=== PATIENT | female | born 1965 | race Caucasian/White ===

== ENCOUNTER 2018-04-11 21:12 | Emergency (ER) | payer MEDICAID, OTHER ==
[2018-04-11] MEDS ORDERED: Take Home: Acetaminophen/Codeine 300 MG/30 MG, 5 Tab Pack PO ONE (21:40)
[2018-04-11] MEDS ORDERED: Take Home: Cyclobenzaprine 10 MG Tab, 4 Tab Pack PO ONE (21:40)
--- NOTE | 2018-04-11 21:45 | EDM.PDOC ---
ED HPI GENERAL MEDICAL PROBLEM - General Chief Complaint: General Stated Complaint: Right sided neck pain Time Seen by Provider: 04/11/18 21:20 Source of Information: Reports: Patient History Limitations: Reports: No Limitations - History of Present Illness INITIAL COMMENTS - FREE TEXT/NARRATIVE: Complains of severe, non-traumatic neck pain with radiation into R upper shoulder and into lateral upper arm (deltoid) area. Complains of paresthesia to R posterior upper shoulder area. No trauma. No fever or chills. States that she has had issues with discomfort similar to this in the past, but this is much worse. She has taken tylenol and ibuprofen for discomfort but it has not helped. Location: Reports: Neck, Upper Extremity, Right Quality: Reports: Ache, Stabbing, Throbbing Severity: Severe Right side of neck Pain Score (Numeric/FACES): 9 - Related Data Allergies Allergy/AdvReac Type Severity Reaction Status Date / Time povidone-iodine Allergy Other Verified 04/12/18 03:48 [From Betadine] soap [From Betadine] Allergy Other Verified 04/12/18 03:48 Home Meds: Home Meds Acetaminophen with Codeine [Tylenol with Codeine #3 Tablet] 1 tab PO Q4H PRN [History] Cyclobenzaprine [Flexeril] 10 mg PO TID 04/12/18 [History] ED ROS GENERAL - Review of Systems Review Of Systems: See Below Constitutional: Reports: No Symptoms Musculoskeletal: Reports: Neck Pain, Shoulder Pain, Arm Pain Skin: Reports: No Symptoms Neurological: Reports: Paresthesia ED EXAM, GENERAL - Physical Exam Exam: See Below Exam Limited By: No Limitations General Appearance: Alert, WD/WN, No Apparent Distress Neck: Limited Range of Motion, Tender Lateral Peripheral Pulses: 4+: Radial (L), Radial (R) Extremities: Normal Inspection, Limited Range of Motion Course - Vital Signs Last Recorded V/S: Last Vital Signs Temp 36.1 C 04/11/18 21:15 Pulse 76 04/11/18 21:15 Resp 20 04/11/18 21:15 BP 178/100 H 04/11/18 21:15 Pulse Ox 99 04/11/18 21:15 - Orders/Labs/Meds Meds: Medications Discontinued Medications Generic Name Dose Route Start Last Admin Trade Name Freq PRN Reason Stop Dose Admin Acetaminophen/Codeine Phosphate 1 packet 04/11/18 21:40 04/11/18 21:48 Take Home: Acetam/Codeine 300-30 Mg, 5 Pack PO 04/11/18 21:41 1 packet ONETIME ONE Administration Cyclobenzaprine HCl 1 packet 04/11/18 21:40 04/11/18 21:48 Take Home: Cyclobenzaprine 10 Mg, 4 Tab Pack PO 04/11/18 21:41 1 packet ONETIME ONE Administration Departure - Departure Time of Disposition: 21:58 Disposition: Home, Self-Care 01 Condition: Good Clinical Impression: Cervical radiculopathy - Discharge Information Instructions: Cervical Radiculopathy Referrals: PCP,Not In Area [Primary Care Provider] - Forms: ED Department Discharge Additional Instructions: Tylenol 3 1 every 4-6 hours as needed for pain Flexeril 10mg three times daily Ibuprofen 600mg every 6 hours for pain Do the exercises as described Follow-up with PCP if not gradually improving, as you may need an MRI - Assessment/Plan Plan: Tylenol 3 1 every 4-6 hours as needed for pain Flexeril 10mg three times daily Ibuprofen 600mg every 6 hours for pain Do the exercises as described Follow-up with PCP if not gradually improving, as you may need an MRI
== END 2018-04-11 21:58 | disposition home or self-care (01) ==
LOC: VM.ED 21:12
DX: M54.12 Radiculopathy, cervical region (principal); Z88.8 Allergy status to other drugs, medicaments and biological substances
CPT/HCPCS: 99283; A9270

== ENCOUNTER 2018-04-12 03:35 | Emergency (ER) | payer MEDICAID ==
[2018-04-12] MEDS ORDERED: HYDROmorphone 1 MG/ML Syringe IM ONE (03:45)
[2018-04-12] MEDS ORDERED: HYDROmorphone 1 MG/ML Syringe IVPUSH ONE ×2 (03:48→03:53)
[2018-04-12] MEDS ORDERED: Sodium Chloride 0.9% 10 ML Syringe FLUSH PRN (03:48)
--- NOTE | 2018-04-12 04:27 | EDM.PDOC ---
ED HPI GENERAL MEDICAL PROBLEM - General Chief Complaint: Neck Problem Stated Complaint: Neck pain with spasms Time Seen by Provider: 04/12/18 03:35 Source of Information: Reports: Patient History Limitations: Reports: No Limitations - History of Present Illness INITIAL COMMENTS - FREE TEXT/NARRATIVE: Pt. contacted ER with complaints of neck and shoulder pain not helped with the tylenol 3. Pt. was informed to return to ER. Pt. states that the symptoms are the same but severe-pain radiating into R shoulder and neck. Continues to have some paresthesia to posterior lateral neck region. No new discomfort. No other acute neuro symtoms. Onset Date: 04/10/18 Location: Reports: Neck, Lower Extremity, Right Quality: Reports: Ache, Burning, Throbbing Severity: Severe Treatments SENIOR ECONOMIST: Reports: Cold Therapy, Other (see below) Other Treatments SENIOR ECONOMIST: Flexeril, Tyl #3 Right side of neck Pain Score (Numeric/FACES): 10 - Related Data Allergies Allergy/AdvReac Type Severity Reaction Status Date / Time povidone-iodine Allergy Other Verified 04/12/18 03:48 [From Betadine] soap [From Betadine] Allergy Other Verified 04/12/18 03:48 Home Meds: Home Meds Acetaminophen with Codeine [Tylenol with Codeine #3 Tablet] 1 tab PO Q4H PRN [History] Cyclobenzaprine [Flexeril] 10 mg PO TID 04/12/18 [History] Past Medical History - Past Health History Medical/Surgical History: Denies Medical/Surgical History ED ROS GENERAL - Review of Systems Review Of Systems: See Below Constitutional: Reports: No Symptoms HEENT: Reports: No Symptoms Respiratory: Reports: No Symptoms Cardiovascular: Reports: No Symptoms GI/Abdominal: Reports: No Symptoms Musculoskeletal: Reports: Neck Pain, Arm Pain Skin: Reports: No Symptoms Neurological: Reports: Paresthesia (see above) ED EXAM, GENERAL - Physical Exam Exam: See Below Exam Limited By: No Limitations General Appearance: Alert, WD/WN, No Apparent Distress Neck: Normal Inspection, Limited Range of Motion, Other (cervical muscle spasm) Respiratory/Chest: No Respiratory Distress, Lungs Clear, Normal Breath Sounds, No Accessory Muscle Use, Chest Non-Tender Cardiovascular: Normal Peripheral Pulses, Regular Rate, Rhythm, No Edema, No Gallop, No JVD, No Murmur, No Rub Peripheral Pulses: 4+: Radial (R) Extremities: Normal Inspection, Normal Range of Motion, Non-Tender, Normal Capillary Refill, No Pedal Edema Neurological: Alert, Oriented, CN II-XII Intact, Normal Cognition, Normal Gait, Normal Reflexes, No Motor/Sensory Deficits Course - Vital Signs Last Recorded V/S: Last Vital Signs Temp 35.8 C 04/12/18 03:35 Pulse 77 04/12/18 03:35 Resp 20 04/12/18 03:35 BP 150/90 H 04/12/18 03:35 Pulse Ox 100 04/12/18 03:35 - Orders/Labs/Meds Orders: Active Orders 24 hr Category Date Time Status Cervical Spine wo Cont [CT] Stat Exams 04/12/18 03:45 Taken Peripheral IV Insertion Adult [OM.PC] Routine Oth 04/12/18 03:48 Ordered Meds: Medications Discontinued Medications Generic Name Dose Route Start Last Admin Trade Name Freq PRN Reason Stop Dose Admin Hydrocodone Bitart/Acetaminophen 1 packet 04/12/18 04:28 04/12/18 04:32 Take Home: Acetaminophen/Hydrocodone 325-10mg PO 04/12/18 04:29 1 packet ONETIME ONE Administration Hydromorphone HCl 1 mg 04/12/18 03:53 04/12/18 04:12 Dilaudid IVPUSH 04/12/18 03:54 1 mg ONETIME ONE Administration Sodium Chloride 10 ml 04/12/18 03:48 Saline Flush FLUSH ASDIRECTED PRN Keep Vein Open - Radiology Interpretation Free Text/Narrative:: CT positive for spondylitis. No acute fracture or other pathology noted. Departure - Departure Time of Disposition: 04:30 Disposition: Home, Self-Care 01 Condition: Good Clinical Impression: Cervical radiculopathy - Discharge Information Instructions: Cervical Radiculopathy, [id number] Forms: ED Department Discharge Additional Instructions: Do not fill the tylenol 3. Start [place] 10/325mg 1 every 4-6 hours as needed for pain. Continue with the flexeril and ibuprofen as previously discussed. Follow-up with your PCP to discuss physical therapy and possible MRI. - My Orders Last 24 Hours: My Active Orders 04/12/18 03:45 Cervical Spine wo Cont [CT] Stat 04/12/18 03:48 Peripheral IV Insertion Adult [OM.PC] Routine - Assessment/Plan Last 24 Hours: My Active Orders 04/12/18 03:45 Cervical Spine wo Cont [CT] Stat 04/12/18 03:48 Peripheral IV Insertion Adult [OM.PC] Routine Plan: Do not fill the tylenol 3. Start [place] 10/325mg 1 every 4-6 hours as needed for pain. Continue with the flexeril and ibuprofen as previously discussed. Follow-up with your PCP to discuss physical therapy and possible MRI.
[2018-04-12] MEDS ORDERED: Take Home: Acetaminophen/HYDROcodone 325-10 MG, 5 Tab Pack PO ONE (04:28)
== END 2018-04-12 04:41 | disposition home or self-care (01) ==
LOC: VM.ED 03:35
DX: M47.22 Other spondylosis with radiculopathy, cervical region (principal); Z88.8 Allergy status to other drugs, medicaments and biological substances
CPT/HCPCS: 72125; 96374; 99283; A9270; J1170